=== PATIENT | male | born 1990 | race African-American/Black ===

== ENCOUNTER 2023-07-15 21:40 | Emergency (ER) | payer BC ==
[~2023-07-15] VITALS: Ht 182.9 cm; Wt 85.7 kg
[2023-07-15] MEDS ORDERED: BACI/NEOM/POLY B OINT PKT 1 UDPKT PACKET ONE (22:06)
[2023-07-15] MEDS ORDERED: LIDOCAINE HCL/MPF 1% 30 ML VIAL IJ ONE (22:06)
[2023-07-15] MEDS: BACI/NEOM/POLY B OINT PKT 1 UDPKT PACKET TP ONE (22:07)
[2023-07-15] MEDS: LIDOCAINE HCL/PF 1% 30 ML VIAL TP ONE (22:07)
[2023-07-15 22:23] VITALS: BP 123/79; TEMP 98.2; O2SAT 98
== END 2023-07-15 22:23 | disposition home or self-care (01) ==
LOC: ER 21:44
DX: S91.312A Laceration without foreign body, left foot, initial encounter (principal); W18.30XA Fall on same level, unspecified, initial encounter; Y93.89 Activity, other specified; Y92.89 Other specified places as the place of occurrence of the external cause; Y99.8 Other external cause status
CPT/HCPCS: 12001; 99283; A6403; J3490